=== PATIENT | male | born 1955 | race Caucasian/White ===

== ENCOUNTER 2021-02-08 07:02 | Emergency (ER) | payer BC ==
[~2021-02-08] VITALS: Ht 172.7 cm; Wt 87.1 kg
[2021-02-08] MEDS ORDERED: LIPITOR20 MG PO (07:18)
[2021-02-08] MEDS ORDERED: LOSARTAN-HCTZ1 EAC2 PO (07:19)
[2021-02-08] MEDS ORDERED: METOPROLOL SUC100 MG PO (07:19)
[2021-02-08] MEDS ORDERED: FLOMAX0.4 MG PO (07:19)
--- NOTE | 2021-02-08 09:51 | EKG ---
[facility] [address] [place], [place] [address] Signed Sinus bradycardia Otherwise normal ECG No previous ECGs available Confirmed by TATYANA CORTÉS MD ([id number] on 02/08/2021 9:51:28 AM Electronically Signed By: TATYANA CORTÉS MD 02/08/21 0951 PATIENT NAME: JOHNNIE CARRENO Electrocardiogram DATE OF : 51 PHYSICIAN: TATYANA CORTÉS MD REPORT #: [id number] REPORT IS CONFIDENTIAL AND NOT TO BE RELEASED WITHOUT AUTHORIZATION
== END 2021-02-08 11:35 | disposition home or self-care (01) ==
LOC: ED 07:02
DX: R07.2 Precordial pain (principal); Z88.6 Allergy status to analgesic agent; Z88.1 Allergy status to other antibiotic agents; Z88.8 Allergy status to other drugs, medicaments and biological substances; Z88.2 Allergy status to sulfonamides; Z79.899 Other long term (current) drug therapy
CPT/HCPCS: 71045; 71260; 80053; 83690; 83735; 84484; 85025; 85379; 93005; 93010; 99285-25; Q9967